=== PATIENT | female | born 1950 | race Caucasian/White ===

== ENCOUNTER 2020-04-08 10:28 | Outpatient (CLI) | payer OTHER, SELFPAY ==
--- NOTE | ~2020-04-08 | XR_ITS ---
XR knee RT 2V DATE: 04/08/2020 10:57 INDICATION: Right leg pain for years, worsening over the past days. No known injury. TECHNIQUE: AP and lateral views COMPARISON: None FINDINGS: There is superior patellar enthesopathy at the quadriceps tendon insertion. There is minima l periarticular spurring of the medial and lateral compartments. Joint spaces appear well preserved. No fracture or dislocation or joint effusion. No periosteal reaction or bone destruction. No radiopaq ue intra-articular loose body or chondrocalcinosis. IMPRESSION: Mild osteoarthritis Reviewed, dictated and finalized at location A. IMPRESSION: Mild osteoarthritis
--- NOTE | ~2020-04-08 | US_ITS ---
US venous doppler LE RT DATE: 04/08/2020 11:25 INDICATION: Right leg pain TECHNIQUE: Real-time and color flow imaging and Doppler analysis of the veins of the right lower extr emity COMPARISON: 02/19/2014 venous duplex examination of the right leg FINDINGS: The greater saphenous vein is patent. There is spontaneous and phasic flow and normal augme ntation and color flow signal and normal compression of the deep veins of the right lower extremity. IMPRESSION: No evidence of deep venous thrombosis of right lower extremity Reviewed, dictated and finalized at Location A. Reviewed, dictated and finalized at location A.
== END 2020-04-08 10:29 | disposition home or self-care (01) ==
LOC: CHSIMG 10:31
PROVIDERS: PCP Nurse Practitioner Family; Visit Provider Nurse Practitioner Family
DX: M79.604 Pain in right leg (principal)
CPT/HCPCS: 73560; 93971

== ENCOUNTER 2020-05-05 08:54 | Outpatient (CLI) | payer OTHER, SELFPAY ==
--- NOTE | ~2020-05-05 | US_ITS ---
EXAMINATION: US pelvic complete w TV DATE: 05/05/2020 09:43 INDICATION: Postmenopausal bleeding TECHNIQUE: Multiple transabdominal and endovaginal sonographic images of the pelvis were obtained. COMPARISON: None. FINDINGS: The uterus measures 8.3 x 4.8 x 5.6 cm. The endometrial complex measures 18 mm. The left ov armando is not visualized however no left adnexal abnormality is seen. The right ovary measures 3.7 x 2.0 x 4.2 cm. There is normal vascular flow in the right ovary. There is no free fluid in the pelvis. IMPRESSION: 1. Endometrial thickening which may be due to hyperplasia, polyp, or malignancy. Endometrial sampling is recommended. Reviewed, dictated and finalized at location A. IMPRESSION: 1. Endometrial thickening which may be due to hyperplasia, polyp, or malignancy . Endometrial sampling is recommended.
== END 2020-05-05 08:55 | disposition home or self-care (01) ==
PROVIDERS: PCP Nurse Practitioner Family; Visit Provider Nurse Practitioner Family
DX: N93.9 Abnormal uterine and vaginal bleeding, unspecified (principal)
CPT/HCPCS: 76830; 76856

== ENCOUNTER 2021-03-22 10:03 | Outpatient (CLI) | payer BC, SELFPAY ==
[2021-03-22 11:19] LABS: SARS-CoV-2 RNA PCR Positive (Negative)
== END 2021-03-22 10:04 | disposition home or self-care (01) ==
LOC: CHSLAB 10:07
PROVIDERS: PCP Nurse Practitioner Family; Visit Provider Nurse Practitioner Family
DX: U07.1 COVID-19 (principal)
CPT/HCPCS: C9803; U0003; U0005

== ENCOUNTER 2021-03-24 13:35 | Outpatient (CLI) | payer BC, SELFPAY ==
[2021-03-24 14:01] VITALS: BP 135/71; PULSE 72; RESP 14; TEMP 35.9; O2SAT 95
[2021-03-24] MEDS: [UNRECOGNIZED DRUG - OTHER] 250 MG IVPB (14:11)
--- NOTE | 2021-03-24 14:18 | PC.NURSE ---
1409 Patient here for Imdevimab and Casirivimab IV infusion for covid +. Patient reports just very sleepy/tired at moment. Education on medication given. Infusion started as ordered.
--- NOTE | 2021-03-24 14:20 | PC.NURSE ---
Patient reports had premeds of benadryl, pepcid, and tylenol po prior to coming per her PCP. Pharmacy notified.
[2021-03-24 14:29] VITALS: BMI 27.2
== END 2021-03-24 13:36 | disposition home or self-care (01) ==
PROVIDERS: PCP Nurse Practitioner Family; Visit Provider Family Medicine
DX: Z23 Encounter for immunization (principal); U07.1 COVID-19; I10 Essential (primary) hypertension
CPT/HCPCS: J7050; M0239; M0243; Q0243

== ENCOUNTER 2022-02-20 14:45 | Outpatient (CLI) | payer BC, SELFPAY ==
--- NOTE | ~2022-02-20 | XR_ITS ---
EXAM: XR lumbar spine 2-3V HISTORY: chronic Low back pain down LT side COMPARISON: None available FINDINGS: 5 nonrib-bearing lumbar-type vertebral bodies with intact pedicles. Severe disc space narr owing at L5-S1. Mild marginal osteophytosis at all levels. Multilevel facet hypertrophy. Possible L5- S1 pars defects. Interspinous narrowing in the lower lumbar spine. IMPRESSION: Severe degenerative disc disease at L5-S1. Possible L5-S1 pars defects, this could be further evaluat ed with bilateral oblique views of the lumbar spine. Reviewed, dictated and finalized at location K. IMPRESSION: Severe degenerative disc disease at L5-S1. Possible L5-S1 pars defects, this co uld be further evaluated with bilateral oblique views of the lumbar spine.
== END 2022-02-20 14:46 | disposition home or self-care (01) ==
LOC: CHSLAB 14:53
PROVIDERS: PCP Nurse Practitioner Family; Visit Provider Nurse Practitioner Family
DX: M54.50 Low back pain, unspecified (principal)
CPT/HCPCS: 72100

== ENCOUNTER 2022-02-22 11:00 | Outpatient (CLI) | payer BC, SELFPAY ==
--- NOTE | ~2022-02-22 | XR_ITS ---
EXAM: XR lumbar spine 2-3V HISTORY: SPONDYLOLYSIS,LUMBAR REGION,[facility] COMPARISON: 02/20/2022. FINDINGS: Bilateral oblique views demonstrate intact pedicles throughout the lumbar spine. Moderate multilevel facet hypertrophy as can be seen with facet arthropathy. IMPRESSION: No pars defects detected. Reviewed, dictated and finalized at location K. IMPRESSION: No pars defects detected.
== END 2022-02-22 11:01 | disposition home or self-care (01) ==
LOC: CHSIMG 11:02
PROVIDERS: PCP Family Medicine; Visit Provider Nurse Practitioner Family
DX: M43.06 Spondylolysis, lumbar region (principal)
CPT/HCPCS: 72100

== ENCOUNTER 2022-03-13 12:01 | Outpatient (CLI) | payer BC, SELFPAY ==
--- NOTE | ~2022-03-13 | XR_ITS ---
EXAMINATION: XR knee LT 2V DATE: 03/13/2022 12:21 INDICATION: Left knee pain. TECHNIQUE: 2 views of left knee were obtained. COMPARISON: Left knee radiographs 09/11/2017 FINDINGS: Bone alignment is normal. No fracture. There is moderate osteoarthritis of medial compartme nt and mild osteoarthritis of lateral and patellofemoral compartments. No knee joint effusion. IMPRESSION: 1. Moderate left knee osteoarthritis. Reviewed, dictated and finalized at location A.
== END 2022-03-13 12:02 | disposition home or self-care (01) ==
LOC: CHSIMG 12:04
PROVIDERS: PCP Family Medicine; Visit Provider Nurse Practitioner Family
DX: M25.562 Pain in left knee (principal)
CPT/HCPCS: 73560

== ENCOUNTER 2022-06-20 06:44 | Outpatient (CLI) | payer BC, SELFPAY ==
--- NOTE | ~2022-06-20 | MR_ITS ---
EXAMINATION: MR lumbar spine wo con DATE: 06/20/2022 08:08 INDICATION: Low back pain TECHNIQUE: Magnetic resonance imaging (MRI) of the lumbar spine was performed without intravenous con trast. Sequences included sagittal T2-weighted FSE, sagittal T2-weighted FS FSE, sagittal T1-weighted FSE, and axial T2-weighted FSE. COMPARISON: 01/31/2014 FINDINGS: 2 mm retrolisthesis L4 on L5. Vertebral body heights are normal. Normal marrow signal. Mild disc hei ght loss at L3-L4. Moderate disc height loss at L4-L5 and moderate to severe disc height loss at L5-S 1. The conus medullaris terminates at L1. There is normal signal in the caudal spinal cord. Multiple parapelvic cysts at the bilateral kidneys. Paravertebral soft tissues are unremarkable. The following disc levels are specifically discussed: T12-L1: The disc does not extend beyond the endplate margin. There is minimal right and moderate left facet joint osteoarthritis. There is no neural foraminal stenosis. There is no central canal stenosi s. L1-L2: The disc does not extend beyond the endplate margin. There is mild bilateral facet joint osteo arthritis. There is no neural foraminal stenosis. There is no central canal stenosis. L2-L3: Left foraminal zone disc protrusion. There is bilateral facet joint osteoarthritis. There is m ild left neural foraminal stenosis. There is no central canal stenosis. L3-L4: Disc is mildly bulging. There is moderate bilateral facet joint osteoarthritis. There is mild bilateral neural foraminal stenosis. There is mild central canal stenosis. L4-L5: Disc is mildly bulging with superimposed annular fissure and small central to right paracentra l disc extrusion with disc material extending up to 3 mm caudal to the level of the superior endplate of L5. There is mild hypertrophy of the ligamentum flavum. There is mild bilateral facet joint oste oarthritis. There is mild bilateral neural foraminal stenosis. There is mild central canal stenosis a long with narrowing of the lateral recesses, right greater than left. L5-S1: Annular fissure and posterior disc osteophyte complex There is mild right and moderate left fa cet joint osteoarthritis. There is mild to moderate right and moderate left neural foraminal stenosis . There is mild central canal stenosis. IMPRESSION: 1. Mild progression of moderate to severe lower lumbar spondylosis. Reviewed, dictated and finalized at location A.
--- NOTE | ~2022-06-20 | MR_ITS ---
EXAMINATION: MR knee LT wo con DATE: 06/20/2022 08:08 INDICATION: Left knee pain TECHNIQUE: Magnetic resonance imaging (MRI) of the left knee was performed without intravenous contra st. Sequences included coronal PD-weighted FSE, coronal PD-weighted FS FSE, sagittal T2-weighted FSE , sagittal PD-weighted FS FSE and axial PD weighted fat saturated FSE. COMPARISON: 05/10/2017 FINDINGS: Medial compartment: There is a large defect involving the majority of the meniscal tissue at the posterior horn consisten t with likely prior partial meniscectomy. The anterior horn and anterior half of the meniscal body re main normal. There is some irregular fraying along the inner free edge and small tear extending to th e cephalad articular surface at the peripheral third of the posterior body and remaining medial aspec t of the posterior horn. Extensive deep partial-thickness cartilage loss with smooth surface along th e anterior to central weightbearing medial femoral condyle. Mild partial-thickness cartilage loss wit h smooth chondral surface regularity and tiny central subchondral osteophytes at the posterior weight bearing medial femoral condyle. Moderate size marginal osteophytes are present. Lateral compartment: Longitudinal horizontal tear extending to the inferior articular surface of the lateral meniscal body extending a short distance into the medial aspect of the anterior and posterior horns. Partial-thick ness cartilage loss with mild fissuring at the medial aspect of the lateral tibial plateau extending onto the intercondylar eminence. Additional partial thickness cartilage loss with mild chondral surfa ce regularity at the posterior weightbearing lateral femoral condyle and lateral margin of the anteri or to central weightbearing lateral femoral condyle. Moderate-sized marginal osteophytes are present. Patellofemoral compartment: Partial-thickness cartilage loss at the medial patellar facet with prominent at the central to faceter ior aspect of the medial tibial plateau root appears full-thickness and near full-thickness with mini mal underlying edema-like signal change. Chondral ulceration involving less than 50% of the cartilage thickness and without degenerative subchondral changes at the lateral trochlea. Deep fissuring witho ut degenerative subchondral changes at the trochlear groove Additional extensive chondral ulceration at the lateral patellar facet which approaches full-thickness with mild underlying subarticular cystl priti changes at the superolateral aspect of the lateral facet. There is some deep fissuring at the inf eromedial aspect of the lateral facet and at the inferior apical ridge. A severe partial thickness ca rtilage loss with mild chondral surface regularity and without degenerative subchondral changes at th e medial patellar facet. Small marginal osteophytes are present. Ligaments and tendons: New at least partial if not complete tear of the anterior cruciate ligament with increased signal ext ending along a wavy lax appearing ligament fibers which follow a shallower course than the mid sagitt al line. There is new erosive change at the femoral footplate of the anterior cruciate ligament. The posterior cruciate ligament is normal. The medial collateral ligament and fibular collateral ligament complex are normal. There are bands of magic angle artifact extending across the otherwise normal pa tellar tendon. Moderate-sized enthesophyte at the superficial insertion of the otherwise normal dista l quadriceps tendon. The visualized medial and lateral hamstring tendons as well as the iliotibial ba nd are normal. Fluid: Physiologic amount fluid in the left knee joint. No loose osteochondral bodies identified. Osseous/other: Normal marrow signal. No fracture or pathologic marrow replacing process. IMPRESSION: 1. New anterior cruciate ligament tear. 2. Interval partial menis
== END 2022-06-20 06:45 | disposition home or self-care (01) ==
LOC: CHSIMG 06:46
PROVIDERS: PCP Nurse Practitioner Family; Visit Provider Nurse Practitioner Family
DX: M25.562 Pain in left knee (principal); M54.50 Low back pain, unspecified
CPT/HCPCS: 72148; 73721

== ENCOUNTER 2024-09-25 08:13 | Outpatient (CLI) | payer OTHER, SELFPAY ==
--- NOTE | ~2024-09-25 | MR_ITS ---
MRI of the right shoulder Technique: Axial proton-density fat-sat images, coronal proton density fat-sat and T2 fat-sat images, and sagittal T1-weighted and T2 fat-sat images were acquired. Clinical History: Bicipital tendinitis Findings: There is moderate to advanced AC joint degenerative change with bony productive change at t he distal clavicle. Coracoclavicular, coracoacromial, and coracohumeral ligaments are probably intact . There is probable 1.3 x 0.6 cm area of full-thickness tearing of the anterior, distal supraspinatus t endon insertion. Infraspinatus tendon is intact. Subscapularis tendon is intact. There is probable co mplete rupture of the proximal long head biceps tendon, retracted into the upper arm beyond the field -of-view. No definite labral tear seen. Inferior glenohumeral ligament is intact. There are small glenohumeral joint effusion, with fluid pas sing through the rotator cuff defect into the subacromial/subdeltoid bursa. No muscle atrophy or alek a. Impression: 1.3 x 0.6 cm full-thickness tear at the anterior, distal supraspinatus tendon insertion. Complete rupture of the proximal long head of the biceps tendon, as detailed above. Moderate to advanced AC joint degenerative change. Reviewed, dictated and finalized at location . CLASSIFIER Impression: 1.3 x 0.6 cm full-thickness tear at the anterior, distal supraspinatus tendon i nsertion. Complete rupture of the proximal long head of the biceps tendon, as detailed ab ove. Moderate to advanced AC joint degenerative change.
== END 2024-09-25 08:14 | disposition home or self-care (01) ==
LOC: CHSIMG 08:15
PROVIDERS: PCP Nurse Practitioner Family; Visit Provider Nurse Practitioner Family
DX: M75.21 Bicipital tendinitis, right shoulder (principal); S46.811A Strain of other muscles, fascia and tendons at shoulder and upper arm level, right arm, initial encounter; S46.111A Strain of muscle, fascia and tendon of long head of biceps, right arm, initial encounter
CPT/HCPCS: 73221